=== PATIENT | female | born 1990 | race Caucasian/White ===

== ENCOUNTER 2018-03-05 00:56 | Emergency (ER) | payer OTHER ==
[2018-03-05 00:57] VITALS: BMI 37.3
[2018-03-05 01:16] VITALS: O2SAT 99
--- NOTE | 2018-03-05 03:16 | C.PDOC ---
History Of Present Illness 27 yo female w/PMHx of asthma come in for evaluation of intermittent pain over left breast/chest wall pain for 1month. For last week, pain worsen, more intense. Describes pain as localized over left side of breast/chest, worse with movement. Pt admits, was seen by PMD 2 weeks ago and received Rx: Left breast US and given Naproxyn without improvement in pain. Still pending US. Otherwise, pt denies fever, chills, breast feeding, denies known trauma or injury, skin changes over Left breast, CP, SOB, dyspnea, diaphoresis, palpitation, denies any other active complaints. Ambulate to ED for evaluation, not in nay apparent distress. Time Seen by Provider: 03/05/18 02:30 Chief Complaint (Nursing): Breast Problem History Per: Patient Past Medical History Reviewed: Historical Data, Nursing Documentation, Vital Signs Vital Signs: Last Vital Signs Temp 98.1 F 03/05/18 01:13 Pulse 60 03/05/18 01:13 Resp 14 03/05/18 01:13 BP 133/77 03/05/18 01:13 Pulse Ox 99 03/05/18 01:13 - Medical History PMH: Asthma Surgical History: - [facility] Procedures LOW CERVICAL (02/04/15) Family History: States: Unknown Family Hx - Social History Hx Tobacco Use: No Hx Alcohol Use: No Hx Substance Use: No - Immunization History Hx Tetanus Toxoid Vaccination: No Hx Influenza Vaccination: Yes Hx Pneumococcal Vaccination: No Review Of Systems Except As Marked, All Systems Reviewed And Found Negative. Constitutional: Negative for: Fever, Chills ENT: Negative for: Ear Discharge, Nose Discharge, Throat Pain, Throat Swelling Cardiovascular: Negative for: Chest Pain, Palpitations, Edema, Light Headedness Respiratory: Negative for: Cough, Shortness of Breath, Wheezing Gastrointestinal: Negative for: Nausea, Vomiting, Abdominal Pain, Diarrhea Genitourinary: Negative for: Vaginal Bleeding Musculoskeletal: Negative for: Neck Pain Skin: Negative for: Rash, Lesions Neurological: Negative for: Weakness, Numbness, Headache, Dizziness Physical Exam - Physical Exam Appears: Well, Non-toxic, No Acute Distress Skin: Normal Color, Warm, Dry, No Rash, No Ecchymosis Head: Normacephalic Eye(s): bilateral: PERRL Nose: No Flaring, No Discharge Oral Mucosa: Moist, No Drooling Throat: No Erythema Neck: Trachea Midline, No Midline Cervical Tenderness, Supple Chest: Symmetrical, No Deformity, Tenderness (Left lateral over pectoris muscle. ), No Ecchymosis, No Subcutaneous Emphysema, Other (B/L breast exam- normal, no skin changes, no nipple changes or discharges. No palpable mass.) Cardiovascular: Rhythm Regular, No Murmur Respiratory: No Decreased Breath Sounds, No Accessory Muscle Use, No Stridor, No Wheezing Gastrointestinal/Abdominal: Soft, No Tenderness, No Distention, No Guarding Back: No CVA Tenderness, No Vertebral Tenderness, No Paraspinal Tenderness Extremity: Normal ROM, No Pedal Edema, No Deformity, No Swelling Neurological/Psych: Oriented x3, Normal Speech ED Course And Treatment O2 Sat by Pulse Oximetry: 99 Pulse Ox Interpretation: Normal Progress Note: On re-evaluation, pt is afebrile, hemodynamicaly stable. Non- toxic. Tolerate po well in ED. PulsEOx 99% RA. ENT: no acute findings. Neck: Supple, (-) JVD. Lungs: CTA B/L, BS equal B/L. Left chest wall tenderness over lateral aspect/pectoris muscle. Breast- normal exam, no skin chages, no palpable mass, no nipple changes. CVS: (+)S1S2, reg. Abd: benign. Back: (-) CVA tenderness. Pt has clinical findings c/w Left sided chest wall pain. Pt advised on course of ds. Ref. to F/u with PMD in 2-3 days for re-eval. Disposition Counseled Patient/Family Regarding: Diagnosis, Need For Followup, Rx Given - Disposition Referrals: Kuldeep Head MD [Staff Provider] - Disposition: HOME/ ROUTINE Disposition Time: 02:45 Condition: STABLE Additional Instructions: Light duty to chest wall Take medication as prescribed Follow up with Breast US as prescribed by PMD, and follow up with PMD 2-3 days for re-evaluation. Return to ED if any worsening or new changes. Prescriptions: Methocarbamol [Robaxin] 500 mg PO TID #14 tab Prednisone [Deltasone] 40 mg PO DAILY #6 tablet Instructions: Muscle Strain (DC) - Clinical Impression Clinical Impression: Chest wall pain
[2018-03-05 04:12] VITALS: BP 119/80; PULSE 76; RESP 20; TEMP 98
== END 2018-03-05 04:10 | disposition home or self-care (01) ==
LOC: C.ER 00:56
DX: R07.89 Other chest pain (principal)

== ENCOUNTER 2018-11-03 15:14 | Inpatient (IN) | payer MEDICAID, OTHER ==
[2018-11-03 15:14] VITALS: BMI 37.3
--- NOTE | 2018-11-03 15:50 | C.PDOC ---
History Of Present Illness 28 y/o female with no significant PMH presents to ED c/o dizziness s/p fall 5 days ago. Pt was washing dishes when she had a syncopal episode and fell to the ground, admits to headstrike and brief LOC. Since that time, she has been having intermittent episodes of dizziness [described as "room spinning"] and headache, which she states was improving until today. This morning, patient awoke with severe left sided parietal headache and increased vertigo, worse with walking and head movement. Associated nausea and one episode of vomiting. Also c/o left eye tearing that she states is chronic and has been evaluated by her eye doctor. Pt wears eyeglasses. Denies seizure activity, fever, vision changes, abdominal pain, neck pain, back pain, weakness, numbness, paresthesias, chest pain, palpitations, SOB, or any other associated symptoms. Time Seen by Provider: 11/03/18 15:39 Chief Complaint (Nursing): Headache Past Medical History Vital Signs: Last Vital Signs Temp 98.9 F 11/03/18 15:32 Pulse 98 H 11/03/18 15:32 Resp 20 11/03/18 15:32 BP 115/78 11/03/18 15:32 Pulse Ox 99 11/03/18 15:32 - Medical History PMH: Asthma Surgical History: - [facility] Procedures LOW CERVICAL (02/04/15) Family History: States: Unknown Family Hx - Social History Hx Tobacco Use: No Hx Alcohol Use: No Hx Substance Use: No - Immunization History Hx Tetanus Toxoid Vaccination: No Hx Influenza Vaccination: Yes Hx Pneumococcal Vaccination: No Review Of Systems Except As Marked, All Systems Reviewed And Found Negative. Constitutional: Negative for: Fever, Chills Eyes: Negative for: Pain, Vision Change ENT: Negative for: Nose Discharge, Throat Pain, Throat Swelling Cardiovascular: Negative for: Chest Pain, Palpitations Respiratory: Negative for: Cough, Shortness of Breath Gastrointestinal: Negative for: Nausea, Vomiting, Abdominal Pain, Constipation Genitourinary: Negative for: Dysuria, Frequency, Vaginal Discharge, Vaginal Bleeding Musculoskeletal: Negative for: Neck Pain, Shoulder Pain, Back Pain Skin: Negative for: Rash Neurological: Positive for: Headache, Dizziness, Other (Vertigo). Negative for: Weakness, Numbness, Seizures Physical Exam - Physical Exam Appears: Well, Non-toxic, No Acute Distress Skin: Normal Color, Warm, Dry Eye(s): bilateral: Normal Inspection, PERRL, EOMI, Photophobia, Other (horizontal nystagmus) Ear(s): Bilateral: Normal Nose: Normal Throat: Normal Neck: Normal, Normal ROM Lymphatic: Normal Exam Cardiovascular: Rhythm Regular Respiratory: Normal Breath Sounds Gastrointestinal/Abdominal: Normal Exam, Bowel Sounds (normoactive), Soft, No Tenderness Back: Normal Inspection, No CVA Tenderness Extremity: Normal ROM, No Tenderness, No Calf Tenderness, Capillary Refill (<2s), No Deformity Extremity: Bilateral: Atraumatic, No Pedal Edema, Normal Color And Temperature, Normal ROM Pulses: Left Radial: Normal, Right Radial: Normal Neurological/Psych: Oriented x3, Normal Speech, Normal Cognition, Normal Cranial Nerves, No Cerebellar Signs (slow, but no ataxia), Normal Motor, Normal Sensation Gait: Unsteady ED Course And Treatment - Laboratory Results Result Diagrams: 11/03/18 18:39 11/03/18 18:39 Lab Interpretation: Normal Urine POC: Negative ECG: Viewed By Wi ECG Rhythm: Sinus Rhythm, Sinus Bradycardia ECG Interpretation: No Acute Changes Interpretation Of ECG: rate 59; sinus shimon; sinus aarythmia; normal intervals; no STEMI or other signs of ischemia Rate From EC O2 Sat by Pulse Oximetry: 99 (RA) Pulse Ox Interpretation: Normal - Radiology CXR: Interpreted by Wi, Viewed By Wi CXR Interpretation: Yes: No Acute Disease - CT Scan/US CT-Head Other Rad Studies (CT/US): Read By Radiologist, Radiology Report Reviewed CT/US Interpretation: Date of service: 11/03/2018. PROCEDURE: CT HEAD WITHOUT CONTRAST. HISTORY: trauma, headache. COMPARISON: None available. TECHNIQUE: Axial computed tomography images were obtained through the head/brain without intravenous contrast. Radiation dose: Total exam DLP = 1083.89 mGy-cm. This CT exam was performed using one or more of the following dose reduction techniques: Automated exposure control, adjustment of the mA and/or kV according to patient size, and/or use of iterative reconstruction technique. FINDINGS: HEMORRHAGE: No intracranial hemorrhage. BRAIN: No mass effect or edema. No atrophy or chronic microvascular ischemic changes. VENTRICLES: Unremarkable. No hydrocephalus. CALVARIUM: Unremarkable. PARANASAL SINUSES: Unremarkable as visualized. No significant inflammatory changes. MASTOID AIR CELLS: Unremarkable as visualized. No inflammatory changes. OTHER FINDINGS: None. IMPRESSION: No intracranial hemorrhage or mass effect. Please note the same- day CT maxillofacial study. CT-MaxillioFacial Other Rad Studies (CT/US): Read By Radiologist, Radiology Report Reviewed CT/US Interpretation: Date of service: 11/03/2018. PROCEDURE: CT MAXILLOFACIAL BONES WITHOUT CONTRAST. HISTORY: trauma, facial pain. COMPARISON: None available. TECHNIQUE: Contiguous axial CT images of the maxillofacial bones were obtained. Coronal and sagittal reformats were generated. Radiation dose: Total exam DLP = 759.48 mGy-cm. This CT exam was performed using one or more of the following dose reduction techniques: Automated exposure control, adjustment of the mA and/or kV according to patient size, and/or use of iterative reconstruction technique. FINDINGS: NASAL BONES: No fracture. Nasal septal deviation noted. ORBITS: Unremarkable. PARANASAL SINUSES/ MASTOIDS: Clear. MAXILLA: Unremarkable. MANDIBLE/ TEMPOROMANDIBULAR JOINTS: Unremarkable. SKULL BASE: Unremarkable. TEMPORAL BONES: Middle ears and mastoid grossly unremarkable. OTHER FINDINGS: None. IMPRESSION: Unremark able non contrast enhanced CT of the maxillofacial bones. CT-Cervical Spine Other Rad Studies (CT/US): Read By Radiologist, Radiology Report Reviewed CT/US Interpretation: Date of service: 11/03/2018. PROCEDURE: CT Cervical Spine without contrast. HISTORY: trauma. COMPARISON: None available. TECHNIQUE: Axial computed tomography images were obtained of the cervical spine without the use of intravenous contrast. Coronal and sagittal reformatted images were created and reviewed. Radiation dose: Total exam DLP = 505.86 mGy-cm. This CT exam was performed using one or more of the following dose reduction techniques: Automated exposure control, adjustment of the mA and/or kV according to patient size, and/or use of iterative reconstruction technique. FINDINGS: VERTEBRAE: No fracture. Normal alignment. No destructive bony lesion. DISCS/SPINAL CANAL/NEURAL FORAMINA: No significant central canal or neural foraminal stenosis. Discs heights are grossly preserved. PARASPINAL SOFT TISSUES: Unremarkable. OTHER FINDINGS: None. IMPRESSION: Unremarkable CT of the cervical spine. Medical Decision Making Medical Decision Making: Initial Plan: * POC preg * CT Head * CT Cervical Spine * CT Maxillofacial * Zofran * Meclizine * Tylenol On initial exam, patient appears uncomfortable, holding left side of head, sensitive to light. No focal neurological findings on exam. Visual garza intact, PERRLA, EOMI. Slow but not ataxic finger to nose. Able to ambulate wit hout assistance although slowly, not ataxic. 17:52 reports resolution of headache after tylenol Visual acuity 20/40 bilaterally uncorrected, patient wears eyeglasses, states her prescription is outdated Pt ambulating with steady gait to and from bathroom without assistance 18:22 reports resolution of nausea, no episodes of vomiting in the ED. continues with vertigo patient now stating she fainted on wednesday and did not slip, as was originally stated - non-mechanical fall Revised plan: * CBC, CMP * UA * CXR * EKG * IVF 20:[address] Cason who accepts patient for inpatient telemetry observation with diagnosis of vertigo and syncope. Requests cardiology and neurology consults. Disposition - Disposition Disposition: HOSPITALIZED Disposition Time: 20:15 Condition: GOOD - Clinical Impression Clinical Impression: Headache, Vertigo, Syncope
--- NOTE | 2018-11-03 16:25 | CT ---
Date of service: 11/03/2018 PROCEDURE: CT HEAD WITHOUT CONTRAST. HISTORY: trauma, headache COMPARISON: None available. TECHNIQUE: Axial computed tomography images were obtained through the head/brain without intravenous contrast. Radiation dose: Total exam DLP = 1083.89 mGy-cm. This CT exam was performed using one or more of the following dose reduction techniques: Automated exposure control, adjustment of the mA and/or kV according to patient size, and/or use of iterative reconstruction technique. FINDINGS: HEMORRHAGE: No intracranial hemorrhage. BRAIN: No mass effect or edema. No atrophy or chronic microvascular ischemic changes. VENTRICLES: Unremarkable. No hydrocephalus. CALVARIUM: Unremarkable. PARANASAL SINUSES: Unremarkable as visualized. No significant inflammatory changes. MASTOID AIR CELLS: Unremarkable as visualized. No inflammatory changes. OTHER FINDINGS: None. IMPRESSION: No intracranial hemorrhage or mass effect. Please note the same-day CT maxillofacial study.
--- NOTE | 2018-11-03 16:26 | CT ---
Date of service: 11/03/2018 PROCEDURE: CT MAXILLOFACIAL BONES WITHOUT CONTRAST HISTORY: trauma, facial pain COMPARISON: None available. TECHNIQUE: Contiguous axial CT images of the maxillofacial bones were obtained. Coronal and sagittal reformats were generated. Radiation dose: Total exam DLP = 759.48 mGy-cm. This CT exam was performed using one or more of the following dose reduction techniques: Automated exposure control, adjustment of the mA and/or kV according to patient size, and/or use of iterative reconstruction technique. FINDINGS: NASAL BONES: No fracture. Nasal septal deviation noted ORBITS: Unremarkable. PARANASAL SINUSES/ MASTOIDS: Clear. MAXILLA: Unremarkable. MANDIBLE/ TEMPOROMANDIBULAR JOINTS: Unremarkable. SKULL BASE: Unremarkable. TEMPORAL BONES: Middle ears and mastoid grossly unremarkable. OTHER FINDINGS: None. IMPRESSION: Unremarkable non contrast enhanced CT of the maxillofacial bones.
--- NOTE | 2018-11-03 16:27 | CT ---
Date of service: 11/03/2018 PROCEDURE: CT Cervical Spine without contrast HISTORY: trauma COMPARISON: None available. TECHNIQUE: Axial computed tomography images were obtained of the cervical spine without the use of intravenous contrast. Coronal and sagittal reformatted images were created and reviewed. Radiation dose: Total exam DLP = 505.86 mGy-cm. This CT exam was performed using one or more of the following dose reduction techniques: Automated exposure control, adjustment of the mA and/or kV according to patient size, and/or use of iterative reconstruction technique. FINDINGS: VERTEBRAE: No fracture. Normal alignment. No destructive bony lesion. DISCS/SPINAL CANAL/NEURAL FORAMINA: No significant central canal or neural foraminal stenosis. Discs heights are grossly preserved. PARASPINAL SOFT TISSUES: Unremarkable. OTHER FINDINGS: None. IMPRESSION: Unremarkable CT of the cervical spine.
[2018-11-03 18:42] LABS: BASO % 0.4 % (0.0-2.0); EOS # 0.1 K/uL (0.0-0.7); EOS % 1.4 % (0.0-4.0); HEMOGLOBIN 13.2 g/dL (11.0-16.0); LYMPH # 2.6 K/uL (1.0-4.3); LYMPH % 26.7 % (20.0-40.0); MEAN CORPUSCULAR HEMOGLOBIN 27.7 pg (27.0-31.0); MEAN CORPUSCULAR HGB CONC 33.1 g/dL (33.0-37.0); MEAN PLATELET VOLUME 10.8 fL (7.2-11.7); MONO # 0.5 K/uL (0.0-0.8); MONO % 5.1 % (0.0-10.0); NEUT # 6.5 K/uL (1.8-7.0); NEUT % 66.4 % (50.0-75.0); RBC 4.78 Mil/uL (3.80-5.20); RED CELL DISTRIBUTION WIDTH 13.3 % (11.5-14.5); WHITE BLOOD COUNT 9.8 K/uL (4.8-10.8)
[2018-11-03 18:56] LABS: MEAN CELL VOLUME 83.6 fL (81.0-99.0)
[2018-11-03 18:59] LABS: ALB/GLOB RATIO 1.6 (1.0-2.1); ALBUMIN 4.3 g/dL (3.5-5.0); ALT/SGPT 17 U/L (9-52); AST/SGOT 20 U/L (14-36); BLOOD UREA NITROGEN 12 mg/dL (7-17); CALCIUM 9.7 mg/dl (8.6-10.4); GFR NON-AFRICAN AMERICAN > 60
[2018-11-03 19:18] LABS: SQUAMOUS EPITHIAL 1 /hpf (0-5); URINE BACTERIA RARE (<OCC); URINE BILIRUBIN NEGATIVE (NEGATIVE); URINE BLOOD 1+ (NEGATIVE); URINE CLARITY Clear (Clear); URINE COLOR Yellow (YELLOW); URINE GLUCOSE (UA) NORMAL (Normal); URINE LEUKOCYTE ESTERASE NEG Leu/uL (Negative); URINE PROTEIN NEGATIVE (NEGATIVE); URINE UROBILINOGEN NORMAL mg/dL (0.2-1.0)
[2018-11-03] MEDS ORDERED: Sodium Chloride 0.9% 1,000 ML IV ONE (19:44)
[2018-11-04 06:46] LABS: BASO % 0.3 % (0.0-2.0); EOS # 0.3 K/uL (0.0-0.7); EOS % 3.3 % (0.0-4.0); HEMOGLOBIN 11.8 g/dL (11.0-16.0); LYMPH # 2.9 K/uL (1.0-4.3); LYMPH % 38.8 % (20.0-40.0); MEAN CORPUSCULAR HEMOGLOBIN 28.4 pg (27.0-31.0); MEAN CORPUSCULAR HGB CONC 33.8 g/dL (33.0-37.0); MEAN PLATELET VOLUME 11.1 fL (7.2-11.7); MONO # 0.6 K/uL (0.0-0.8); MONO % 7.5 % (0.0-10.0); NEUT # 3.8 K/uL (1.8-7.0); NEUT % 50.1 % (50.0-75.0); NRBC % 0.1 % (0.0-2.0); RBC 4.17 Mil/uL (3.80-5.20); RED CELL DISTRIBUTION WIDTH 13.4 % (11.5-14.5); WHITE BLOOD COUNT 7.5 K/uL (4.8-10.8)
[2018-11-04 07:04] LABS: ALB/GLOB RATIO 1.3 (1.0-2.1); ALBUMIN 3.2 g/dL (3.5-5.0); ALT/SGPT 21 U/L (9-52); AST/SGOT 16 U/L (14-36); BLOOD UREA NITROGEN 8 mg/dL (7-17); CALCIUM 8.6 mg/dl (8.6-10.4); GFR NON-AFRICAN AMERICAN > 60; HDL CHOLESTEROL 44 mg/dL (30-70)
[2018-11-04 07:14] LABS: LDL CHOLESTEROL 78 mg/dL (0-129)
[2018-11-04 07:37] LABS: BARBITURATES, UR NEGATIVE (NEGATIVE); BENZODIAZEPINES, UR NEGATIVE (NEGATIVE); OPIATES, UR NEGATIVE (NEGATIVE); PHENCYCLIDINE, UR NEGATIVE (NEGATIVE)
--- NOTE | 2018-11-04 08:47 | RAD ---
Date of service: 11/03/2018 HISTORY: dizziness COMPARISON: 10/20/2016. FINDINGS: LUNGS: The lungs are well inflated and clear. PLEURA: No pleural effusions or pneumothorax. CARDIOVASCULAR: The heart is normal in size. No aortic atherosclerotic calcification present. OSSEOUS STRUCTURES: Within normal limits for the patient's age. VISUALIZED UPPER ABDOMEN: Normal. OTHER FINDINGS: None. IMPRESSION: No active pulmonary disease.
[2018-11-04] MEDS: Enoxaparin 40 mg Syringe SC SCH (09:13)
--- NOTE | 2018-11-04 09:18 | CP.PCM.PN ---
Subjective - Date & Time of Evaluation Date of Evaluation: 11/04/18 Time of Evaluation: 09:17 - Subjective Subjective: H&P dictated #[id number] Objective - Vital Signs/Intake and Output Vital Signs (last 24 hours): Temp Pulse Resp BP Pulse Ox 98.4 F 54 L 20 115/66 95 11/04/18 07:43 11/04/18 08:06 11/04/18 07:43 11/04/18 07:43 11/04/18 07:43 Intake and Output: 11/04/18 11/04/18 06:59 18:59 Intake Total 600 Balance 600 - Medications Medications: Current Medications Enoxaparin Sodium (Lovenox) 40 mg SC DAILY [facility] Last Admin: 11/04/18 09:13 Dose: 40 mg Dextrose/Sodium Chloride (Dextrose 5%/0.9% Ns 1000 Ml) 1,000 mls @ 100 mls/hr IV .Q10H [facility] Last Admin: 11/04/18 00:00 Dose: 100 mls/hr Potassium Chloride (K-Dur 20 Meq Er Tab) 40 meq PO ONCE ONE Stop: 11/04/18 10:01 Last Admin: 11/04/18 09:13 Dose: 40 meq - Labs Labs: 11/04/18 06:40 11/04/18 06:40
[2018-11-04] MEDS ORDERED: Potassium Chloride 20 mEq ER Tab PO ONE (10:00)
--- NOTE | 2018-11-04 11:10 | CP.PCM.CON ---
History of Present Illness - History of Present Illness History of Present Illness: The pt is a 28 year old woman, previously healthy. She takes only control. On wednesday, doing dishes, he abruptly passed out, woke up on the floor with her 8 year old child over her shaking her face. She sat on the couch. She began experiencing left occipital pain that has been persistent. She has had vertigo at rest since the incident, and has not been able to function, spend the res of the week in bed. Pt has vertigo tdoay, during my interview, made worse with looking up. Standing up, she feels light headed, that she might faint. No diabetes, drugs, etoh or cigs, no fh of early cad related . Review of Systems - Review of Systems All systems: reviewed and no additional remarkable complaints except (as above) Past Patient History - Past Social History Smoking Status: Never Smoked - CARDIAC Hx Cardiac Disorders: Yes - PULMONARY Hx Asthma: Yes - PSYCHIATRIC Hx Substance Use: No - SURGICAL HISTORY Hx Surgeries: Yes Hx Section: Yes (2x) - ANESTHESIA Hx Anesthesia: No Hx Anesthesia Reactions: No Meds Allergies/Adverse Reactions: Allergies Allergy/AdvReac Type Severity Reaction Status Date / Time No Known Allergies Allergy Verified 11/03/18 15:35 - Medications Medications: Current Medications Enoxaparin Sodium (Lovenox) 40 mg SC DAILY [facility] Last Admin: 11/04/18 09:13 Dose: 40 mg Dextrose/Sodium Chloride (Dextrose 5%/0.9% Ns 1000 Ml) 1,000 mls @ 100 mls/hr IV .Q10H [facility] Last Admin: 11/04/18 00:00 Dose: 100 mls/hr Physical Exam - Constitutional Appears: Well - Head Exam Head Exam: NORMAL INSPECTION - Eye Exam Eye Exam: EOMI - ENT Exam ENT Exam: Mucous Membranes Moist, Normal Exam - Neck Exam Neck exam: Positive for: Normal Inspection - Respiratory Exam Respiratory Exam: Clear to Auscultation Bilateral - Cardiovascular Exam Cardiovascular Exam: REGULAR RHYTHM - GI/Abdominal Exam GI & Abdominal Exam: Normal Bowel Sounds - Exam External exam: NORMAL EXTERNAL EXAM - Extremities Exam Extremities exam: Positive for: normal inspection - Back Exam Back exam: NORMAL INSPECTION - Neurological Exam Neurological exam: Alert, CN II-XII Intact, Oriented x3 - Psychiatric Exam Psychiatric exam: Normal Affect, Normal Mood - Skin Skin Exam: Normal Color Results - Vital Signs Recent Vital Signs: Last Vital Signs Temp 98.4 F 11/04/18 07:43 Pulse 54 L 11/04/18 08:06 Resp 20 11/04/18 07:43 BP 115/66 11/04/18 07:43 Pulse Ox 95 11/04/18 07:43 - Labs Result Diagrams: 11/04/18 06:40 11/04/18 06:40 Labs: Laboratory Results - last 24 hr 11/03/18 11/03/18 11/03/18 07:09 18:39 18:39 WBC 9.8 RBC 4.78 Hgb 13.2 Hct 40.0 MCV 83.6 D MCH 27.7 MCHC 33.1 RDW 13.3 Plt Count 244 MPV 10.8 Neut % (Auto) 66.4 Lymph % (Auto) 26.7 Holmes % (Auto) 5.1 Eos % (Auto) 1.4 Baso % (Auto) 0.4 Neut # (Auto) 6.5 Lymph # (Auto) 2.6 Holmes # (Auto) 0.5 Eos # (Auto) 0.1 Baso # (Auto) 0.0 Sodium 137 Potassium 3.7 Chloride 105 Carbon Dioxide 23 Anion Gap 13 BUN 12 Creatinine 0.5 L Est GFR ( Amer) > 60 Est GFR (Non-Af Amer) > 60 Random Glucose 155 H D Hemoglobin A1c Calcium 9.7 Phosphorus Magnesium Total Bilirubin 0.4 AST 20 ALT 17 Alkaline Phosphatase 66 Troponin I Total Protein 7.0 Albumin 4.3 Globulin 2.7 Albumin/Globulin Ratio 1.6 Triglycerides Cholesterol LDL Cholesterol Direct HDL Cholesterol TSH 3rd Generation Urine Color Urine Clarity Urine pH Ur Specific [place] Urine Protein Urine Glucose (UA) Urine Ketones Urine Blood Urine Nitrate Urine Bilirubin Urine Urobilinogen Ur Leukocyte Esterase Urine WBC (Auto) Urine RBC (Auto) Ur Squamous Epith Cells Urine Bacteria Urine Opiates Screen Negative Urine Methadone Screen Negative Ur Barbiturates Screen Negative Ur Phencyclidine Scrn Negative Ur Amphetamines Screen Negative U Benzodiazepines Scrn Negative U Oth Cocaine Metabols Negative U Cannabinoids Screen Negative 11/03/18 11/04/18 11/04/18 19:12 06:40 06:40 WBC 7.5 RBC 4.17 Hgb 11.8 Hct 35.0 MCV 84.0 MCH 28.4 MCHC 33.8 RDW 13.4 Plt Count 188 MPV 11.1 Neut % (Auto) 50.1 Lymph % (Auto) 38.8 Holmes % (Auto) 7.5 Eos % (Auto) 3.3 Baso % (Auto) 0.3 Neut # (Auto) 3.8 Lymph # (Auto) 2.9 Holmes # (Auto) 0.6 Eos # (Auto) 0.3 Baso # (Auto) 0.0 Sodium 137 Potassium 3.5 L Chloride 108 H Carbon Dioxide 23 Anion Gap 9 L BUN 8 Creatinine 0.5 L Est GFR ( Amer) > 60 Est GFR (Non-Af Amer) > 60 Random Glucose 102 D Hemoglobin A1c Calcium 8.6 Phosphorus 4.1 Magnesium 1.7 Total Bilirubin 0.3 AST 16 ALT 21 Alkaline Phosphatase 53 Troponin I < 0.0120 Total Protein 5.7 L Albumin 3.2 L D Globulin 2.6 Albumin/Globulin Ratio 1.3 Triglycerides 138 Cholesterol 129 LDL Cholesterol Direct 78 HDL Cholesterol 44 TSH 3rd Generation 4.33 Urine Color Yellow Urine Clarity Clear Urine pH 5.0 Ur Specific [place] 1.019 Urine Protein Negative Urine Glucose (UA) Normal Urine Ketones Negative Urine Blood 1+ H Urine Nitrate Negative Urine Bilirubin Negative Urine Urobilinogen Normal Ur Leukocyte Esterase Neg Urine WBC (Auto) 1 Urine RBC (Auto) 2 Ur Squamous Epith Cells 1 Urine Bacteria Rare Urine Opiates Screen Urine Methadone Screen Ur Barbiturates Screen Ur Phencyclidine Scrn Ur Amphetamines Screen U Benzodiazepines Scrn U Oth Cocaine Metabols U Cannabinoids Screen 11/04/18 06:40 WBC RBC Hgb Hct MCV MCH MCHC RDW Plt Count MPV Neut % (Auto) Lymph % (Auto) Holmes % (Auto) Eos % (Auto) Baso % (Auto) Neut # (Auto) Lymph # (Auto) Holmes # (Auto) Eos # (Auto) Baso # (Auto) Sodium Potassium Chloride Carbon Dioxide Anion Gap BUN Creatinine Est GFR ( Amer) Est GFR (Non-Af Amer) Random Glucose Hemoglobin A1c 5.6 Calcium Phosphorus Magnesium Total Bilirubin AST ALT Alkaline Phosphatase Troponin I Total Protein Albumin Globulin Albumin/Globulin Ratio Triglycerides Cholesterol LDL Cholesterol Direct HDL Cholesterol TSH 3rd Generation Urine Color Urine Clarity Urine pH Ur Specific [place] Urine Protein Urine Glucose (UA) Urine Ketones Urine Blood Urine Nitrate Urine Bilirubin Urine Urobilinogen Ur Leukocyte Esterase Urine WBC (Auto) Urine RBC (Auto) Ur Squamous Epith Cells Urine Bacteria Urine Opiates Screen Urine Methadone Screen Ur Barbiturates Screen Ur Phencyclidine Scrn Ur Amphetamines Screen U Benzodiazepines Scrn U Oth Cocaine Metabols U Cannabinoids Screen - EKG Data EKG Interpreted by: Myself EKG shows normal: Sinus rhythm (normal) Assessment & Plan - Assessment and Plan (Free Text) Assessment: 1. Syncoep: will check ortostatics, ecg is normal, tni neg. Syncoep can occur with pulmonary embolism, and pt is on control: d dimer,and if pos, then ct is advised. Will review echo. No arrhythmia seen on tele. 2. Pt clearly has vertigo at rest, and persistent. It is worse looking up. A neurology consult is advised.
[2018-11-04] MEDS: Dextrose 5%/0.9% NS 1,000 ML IV SCH ×3 (11:14→17:45)
--- NOTE | 2018-11-04 15:00 | VASCLAB ---
Date of service: 11/04/2018 PROCEDURE: Carotid Duplex Exam. HISTORY: syncope COMPARISON: None available. TECHNIQUE: Grayscale and duplex Doppler evaluation of the cervical carotid and vertebral arteries were performed. The common carotid, carotid bifurcations and cervical Internal Carotid Artery (ICA) and proximal External Carotid Artery (ECA) were evaluated. The vertebral arteries were evaluated for gross patency and flow direction. Report prepared by Charbel Knig, BS, RVT FINDINGS: RIGHT CAROTID ARTERIES: 1. Common Carotid Artery: No significant focal plaque formation of the right common carotid artery. Maximum Peak Systolic velocity: 112 cm/sec: End-diastolic velocity 32 cm/sec. 2. Carotid Bifurcation: plaque formation. Maximum Peak Systolic velocity: 89 cm/sec: End-diastolic velocity 26 cm/sec. 3. Internal Carotid Artery: Plaque description: 3.1. Proximal Segment: Peak systolic velocity 112 cm/sec: End-diastolic velocity 31 cm/sec - % stenosis 0-15% 3.2. Middle Segment: Peak systolic velocity 81 cm/sec: End-diastolic velocity 33 cm/sec - % stenosis 0-15% 3.3. Distal Segment: Peak systolic velocity 81 cm/sec: End-diastolic velocity 28 cm/sec - % stenosis 0-15% 4. External Carotid Artery: No significant focal plaque formation. Peak systolic velocity 105 cm/sec 5. ICA/CCA Ratio: 1.0 LEFT CAROTID ARTERIES: 1. Common Carotid Artery: No significant focal plaque formation of the left common carotid artery. Maximum Peak Systolic velocity: 119 cm/sec: End-diastolic velocity 30 cm/sec. 2. Carotid Bifurcation: plaque formation. Maximum Peak Systolic velocity: 109 cm/sec: End-diastolic velocity 28 cm/sec. 3. Internal Carotid Artery: Plaque description: 3.1. Proximal Segment: Peak systolic velocity 112 cm/sec: End-diastolic velocity 33 cm/sec - % stenosis 0-15% 3.2. Middle Segment: Peak systolic velocity 83 cm/sec: End-diastolic velocity 26 cm/sec - % stenosis 0-15% 3.3. Distal Segment: Peak systolic velocity 80 cm/sec: End-diastolic velocity 33 cm/sec - % stenosis 0-15% 4. External Carotid Artery: No significant focal plaque formation. Peak systolic velocity 91 cm/sec 5. ICA/CCA Ratio: 0.9 VERTEBRAL ARTERIES: 1. Right Vertebral Artery: The right vertebral artery flow direction is antegrade. 2. Left Vertebral Artery: The left vertebral artery flow direction is antegrade. OTHER FINDINGS: 1. Right Brachial Blood pressure: 124 mmHg. 2. Left Brachial Blood pressure: 120 mmHg. 3. No atherosclerotic calcification present IMPRESSION: RIGHT: Duplex scan does not suggest hemodynamically significant stenosis of the right extracranial carotid arteries. LEFT: Duplex scan does not suggest hemodynamically significant stenosis of the left extracranial carotid arteries.
[2018-11-04 16:56] LABS: SQUAMOUS EPITHIAL 3 /hpf (0-5); URINE BACTERIA RARE (<OCC); URINE BILIRUBIN NEGATIVE (NEGATIVE); URINE BLOOD NEGATIVE (NEGATIVE); URINE CLARITY Clear (Clear); URINE COLOR Yellow (YELLOW); URINE GLUCOSE (UA) NORMAL (Normal); URINE LEUKOCYTE ESTERASE NEG Leu/uL (Negative); URINE PROTEIN NEGATIVE (NEGATIVE); URINE UROBILINOGEN NORMAL mg/dL (0.2-1.0)
[2018-11-04] MEDS ORDERED: Iodixanol 320 MG/ML 100 ML BOTTLE IV ONE (17:52)
--- NOTE | 2018-11-04 23:37 | PCM.RRT ---
DIVISIONAL MERCHANDISING MANAGER Nurses Assessment New IV Insertion Tolerance: Excellent - Head Head Exam: ATRAUMATIC, NORMAL INSPECTION - Eyes Eye Exam: EOMI - Respiratory Exam Respiratory Exam: Clear to Ausculation Bilateral, NORMAL BREATHING PATTERN. absent: Rhonchi, Wheezes - Cardiovascular Exam Cardiovascular Exam: REGULAR RHYTHM, +S1, +S2 - GI/Abdominal Exam GI & Abdominal Exam: Soft, Normal Bowel Sounds - Neurological Exam Neurological Exam: Alert, Awake - Extremities Exam Extremities Exam: absent: Pedal Edema Plan - Assessment of Findings&Treatment Plan DIVISIONAL MERCHANDISING MANAGER called at ... for patient feeling faint. Patient was with CP in room who wa s assisting patient to bathroom when patient stated she started to feel faint. She did not pass out or lose conciousness. Patient brought back to bed and fell down into bed but did not hit her head. Head CT yesterday 11/03 was unremarkable. Patient did receive one dose of antivert for dizziness earlier today. Primary Dr. Cason was notified for further management. Patient appearing stable at this time and initial vitals unremarkable, though on repeat vitals she is tachycardic. Patient complaining also of headache, which she states was chief complaint upon arriving to hospital. No further interventions at this time. Initial Vital Signs: 128/84 pulse 88 100% 02 SAT RA temp 98 Vitals at end DIVISIONAL MERCHANDISING MANAGER 138/100 pulse 125 99% 02 on RA
--- NOTE | 2018-11-04 23:55 | CP.PCM.CON ---
<Jama Knight - Last Filed: 11/05/18 09:07> History of Present Illness - History of Present Illness History of Present Illness: Patient is a 28 female with a past medical history significant for DM presenting with complaints of syncopal episode 5 days prior to being admitted. As per patient she was washing the dishes then suddenly she woke up from the floor. Patient states that she hit her head when this had happened and subsequently developed a headache which she has had since the fall. Patient states when she is looking downward she does not experience dizziness however when looking upward she xperiences vertigo. Patient also states if she sits down she feels fine however symptoms are exacerbated with standing and walking. Patient's story is incosistent as she changes the story from time to time. Patient denies any prior syncopal episodes. Review of Systems - Constitutional Constitutional: absent: Chills - EENT Eyes: absent: Change in Vision, Diplopia Ears: Dizziness - Cardiovascular Cardiovascular: absent: Chest Pain, Dyspnea - Respiratory Respiratory: absent: Cough, Dyspnea - Gastrointestinal Gastrointestinal: absent: Abdominal Pain - Genitourinary Genitourinary: absent: Dysuria - Musculoskeletal Musculoskeletal: absent: Back Pain - Neurological Neurological: Disequilibrium, Dizziness, Headaches, Vertigo Past Patient History - Past Social History Smoking Status: Never Smoked - CARDIAC Hx Cardiac Disorders: Yes - PULMONARY Hx Asthma: Yes - PSYCHIATRIC Hx Substance Use: No - SURGICAL HISTORY Hx Surgeries: Yes Hx Section: Yes (2x) - ANESTHESIA Hx Anesthesia: No Hx Anesthesia Reactions: No Meds Allergies/Adverse Reactions: Allergies Allergy/AdvReac Type Severity Reaction Status Date / Time No Known Allergies Allergy Verified 11/03/18 15:35 - Medications Medications: Current Medications Enoxaparin Sodium (Lovenox) 40 mg SC DAILY [facility] Last Admin: 11/04/18 09:13 Dose: 40 mg Dextrose/Sodium Chloride (Dextrose 5%/0.9% Ns 1000 Ml) 1,000 mls @ 100 mls/hr IV .Q10H [facility] Last Admin: 11/04/18 11:14 Dose: 100 mls/hr Influenza Virus Vaccine (Flucelvax Quad 0924-1764 Syr) 60 mcg IM .ONCE ONE Stop: 11/05/18 12:01 Physical Exam - Head Exam Head Exam: NORMOCEPHALIC - Eye Exam Eye Exam: EOMI - Respiratory Exam Respiratory Exam: Clear to Auscultation Bilateral, NORMAL BREATHING PATTERN - Cardiovascular Exam Cardiovascular Exam: REGULAR RHYTHM, +S1, +S2 - GI/Abdominal Exam GI & Abdominal Exam: Normal Bowel Sounds - Extremities Exam Extremities exam: Positive for: normal inspection - Neurological Exam Neurological exam: Alert, CN II-XII Intact, Oriented x3 Additional comments: Patient non compliant with parts of neurological exam however exam was completely normal Results - Vital Signs Recent Vital Signs: Last Vital Signs Temp 98.7 F 11/04/18 16:13 Pulse 84 11/04/18 16:13 Resp 18 11/04/18 16:13 BP 120/79 11/04/18 16:13 Pulse Ox 99 11/04/18 16:13 - Labs Result Diagrams: 11/05/18 07:11 11/05/18 07:11 Labs: Laboratory Results - last 24 hr 11/03/18 11/04/18 11/04/18 07:09 06:40 06:40 WBC 7.5 RBC 4.17 Hgb 11.8 Hct 35.0 MCV 84.0 MCH 28.4 MCHC 33.8 RDW 13.4 Plt Count 188 MPV 11.1 Neut % (Auto) 50.1 Lymph % (Auto) 38.8 Larue % (Auto) 7.5 Eos % (Auto) 3.3 Baso % (Auto) 0.3 Neut # (Auto) 3.8 Lymph # (Auto) 2.9 Larue # (Auto) 0.6 Eos # (Auto) 0.3 Baso # (Auto) 0.0 D-Dimer, Quantitative Sodium 137 Potassium 3.5 L Chloride 108 H Carbon Dioxide 23 Anion Gap 9 L BUN 8 Creatinine 0.5 L Est GFR ( Amer) > 60 Est GFR (Non-Af Amer) > 60 POC Glucose (mg/dL) Random Glucose 102 D Hemoglobin A1c Calcium 8.6 Phosphorus 4.1 Magnesium 1.7 Total Bilirubin 0.3 AST 16 ALT 21 Alkaline Phosphatase 53 Troponin I < 0.0120 Total Protein 5.7 L Albumin 3.2 L D Globulin 2.6 Albumin/Globulin Ratio 1.3 Triglycerides 138 Cholesterol 129 LDL Cholesterol Direct 78 HDL Cholesterol 44 TSH 3rd Generation 4.33 Urine Color Urine Clarity Urine pH Ur Specific [place] Urine Protein Urine Glucose (UA) Urine Ketones Urine Blood Urine Nitrate Urine Bilirubin Urine Urobilinogen Ur Leukocyte Esterase Urine WBC (Auto) Urine RBC (Auto) Ur Squamous Epith Cells Urine Bacteria Urine HCG, Qual Urine Opiates Screen Negative Urine Methadone Screen Negative Ur Barbiturates Screen Negative Ur Phencyclidine Scrn Negative Ur Amphetamines Screen Negative U Benzodiazepines Scrn Negative U Oth Cocaine Metabols Negative U Cannabinoids Screen Negative 11/04/18 11/04/18 11/04/18 06:40 13:15 13:15 WBC RBC Hgb Hct MCV MCH MCHC RDW Plt Count MPV Neut % (Auto) Lymph % (Auto) Larue % (Auto) Eos % (Auto) Baso % (Auto) Neut # (Auto) Lymph # (Auto) Larue # (Auto) Eos # (Auto) Baso # (Auto) D-Dimer, Quantitative Sodium Potassium Chloride Carbon Dioxide Anion Gap BUN Creatinine Est GFR ( Amer) Est GFR (Non-Af Amer) POC Glucose (mg/dL) Random Glucose Hemoglobin A1c 5.6 Calcium Phosphorus Magnesium Total Bilirubin AST ALT Alkaline Phosphatase Troponin I Total Protein Albumin Globulin Albumin/Globulin Ratio Triglycerides Cholesterol LDL Cholesterol Direct HDL Cholesterol TSH 3rd Generation Urine Color Yellow Urine Clarity Clear Urine pH 6.0 Ur Specific [place] 1.005 Urine Protein Negative Urine Glucose (UA) Normal Urine Ketones Negative Urine Blood Negative Urine Nitrate Negative Urine Bilirubin Negative Urine Urobilinogen Normal Ur Leukocyte Esterase Neg Urine WBC (Auto) < 1 Urine RBC (Auto) 1 Ur Squamous Epith Cells 3 Urine Bacteria Rare Urine HCG, Qual Negative Urine Opiates Screen Urine Methadone Screen Ur Barbiturates Screen Ur Phencyclidine Scrn Ur Amphetamines Screen U Benzodiazepines Scrn U Oth Cocaine Metabols U Cannabinoids Screen 11/04/18 11/04/18 11/04/18 13:38 13:38 23:27 WBC RBC Hgb Hct MCV MCH MCHC RDW Plt Count MPV Neut % (Auto) Lymph % (Auto) Larue % (Auto) Eos % (Auto) Baso % (Auto) Neut # (Auto) Lymph # (Auto) Larue # (Auto) Eos # (Auto) Baso # (Auto) D-Dimer, Quantitative 344 H Sodium Potassium Chloride Carbon Dioxide Anion Gap BUN Creatinine Est GFR ( Amer) Est GFR (Non-Af Amer) POC Glucose (mg/dL) 95 Random Glucose Hemoglobin A1c Calcium Phosphorus Magnesium Total Bilirubin AST ALT Alkaline Phosphatase Troponin I < 0.0120 Total Protein Albumin Globulin Albumin/Globulin Ratio Triglycerides Cholesterol LDL Cholesterol Direct HDL Cholesterol TSH 3rd Generation Urine Color Urine Clarity Urine pH Ur Specific [place] Urine Protein Urine Glucose (UA) Urine Ketones Urine Blood Urine Nitrate Urine Bilirubin Urine Urobilinogen Ur Leukocyte Esterase Urine WBC (Auto) Urine RBC (Auto) Ur Squamous Epith Cells Urine Bacteria Urine HCG, Qual Urine Opiates Screen Urine Methadone Screen Ur Barbiturates Screen Ur Phencyclidine Scrn Ur Amphetamines Screen U Benzodiazepines Scrn U Oth Cocaine Metabols U Cannabinoids Screen Assessment & Plan - Assessment and Plan (Free Text) Plan: Patient is a 28 female with a past medical history significant for DM presenting with complaints of dizziness s/p syncopal episode. -MRI brain -Check orthostatics -Carotid US -Hydration <Juliette Martinez - Last Filed: 11/06/18 14:36> Meds - Medications Medications: Current Medications Acetaminophen (Tylenol 325mg Tab) 650 mg PO Q6 PRN PRN Reason: Headache Last Admin: 11/06/18 09:02 Dose: 650 mg Enoxaparin Sodium (Lovenox) 40 mg SC DAILY [facility] Last Admin: 11/06/18 09:05 Dose: 40 mg Dextrose/Sodium Chloride (Dextrose 5%/0.9% Ns 1000 Ml) 1,000 mls @ 100 mls/hr IV .Q10H [facility] Last Admin: 11/06/18 09:05 Dose: 100 mls/hr Meclizine HCl (Antivert) 12.5 mg PO Q8 PRN PRN Reason: Dizziness Last Admin: 11/05/18 21:49 Dose: 12.5 mg Results - Vital Signs Recent Vital Signs: Last Vital Signs Temp 98.2 F 11/06/18 07:00 Pulse 60 11/06/18 07:07 Resp 20 11/06/18 07:00 BP 118/75 11/06/18 07:00 Pulse Ox 99 11/06/18 08:00 - Labs Result Diagrams: 11/06/18 09:16 11/06/18 09:16 Labs: Laboratory Results - last 24 hr 11/06/18 11/06/18 09:16 09:16 WBC 6.7 RBC 4.16 Hgb 11.9 Hct 34.9 MCV 83.9 MCH 28.5 MCHC 34.0 RDW 13.2 Plt Count 206 MPV 11.3 Neut % (Auto) 59.0 Lymph % (Auto) 33.1 Larue % (Auto) 4.1 Eos % (Auto) 3.5 Baso % (Auto) 0.3 Neut # (Auto) 4.0 Lymph # (Auto) 2.2 Larue # (Auto) 0.3 Eos # (Auto) 0.2 Baso # (Auto) 0.0 Sodium 136 Potassium 3.6 Chloride 108 H Carbon Dioxide 23 Anion Gap 9 L BUN 7 Creatinine 0.5 L Est GFR ( Amer) > 60 Est GFR (Non-Af Amer) > 60 Random Glucose 113 H Calcium 8.5 L Total Bilirubin 0.5 AST 15 ALT 20 Alkaline Phosphatase 51 Total Protein 5.8 L Albumin 3.3 L Globulin 2.5 Albumin/Globulin Ratio 1.3 Assessment & Plan - Assessment and Plan (Free Text) Plan: I examined the patient with the resident and independently and agree with the assessment and plan. Dr. Martinez Neurology
--- NOTE | 2018-11-05 01:16 | HP ---
CHIEF COMPLAINT: Status post syncopal episode on Wednesday followed by dizziness. HISTORY OF PRESENT ILLNESS: Ms. Nieves is a 28-year-old female with no significant past medical history, has been in her usual state of health until Wednesday when she was doing her dishes, she suddenly felt dizzy and fell to the ground without any warning. She was on the floor when she woke up. After that episode of fall, she started feeling dizziness and had multiple episodes of vomiting each time she ate and has not been able to eat well, has been feeling dizzy since then also, but started having left occipital headache which has been there since Wednesday but yesterday her headache and dizziness were so worse that she could not take the pain anymore and she has been in bed almost of the time for the past 4 days. She feels like her room was spinning around. Whenever she was trying to get up from bed to stand up, she felt very dizzy; even when she was lying down in bed, if she started looking up, she felt very dizzy but when she was looking down, she did not have any dizziness. She denied any nausea or vomiting at the present time. Denied any chest pain. Denied any shortness of breath. Denied any abdominal symptoms. Denied any urinary symptoms. She denies being getting . She has been on control pills. She is having 3 children who are 3, 6 and 8 year old. PAST MEDICAL HISTORY: Denies any past medical history. PAST SURGICAL HISTORY: Denies any past surgical history other than 2 C sections. FAMILY HISTORY: Diabetes in mother, uncles and grandparents. PERSONAL HISTORY: She is , having 3 children, unemployed. SOCIAL HISTORY: Denies smoking, alcohol or drug abuse. ALLERGIES: NO KNOWN DRUG ALLERGIES. MEDICATIONS: Her home medications include control pills, albuterol as needed, prednisone 40 mg daily, naproxen 500 mg p.o. twice daily, Robaxin 500 mg p.o. three times a day. REVIEW OF SYSTEMS: As described in history of present illness. All other systems reviewed and were found to be negative. PHYSICAL EXAMINATION: GENERAL: Young obese female, lying in bed, in no acute distress. VITAL SIGNS: Blood pressure 115/66, pulse 84, respiration 20, temperature 98.4 degrees Fahrenheit, O2 sat 95% on 2 liters nasal cannula. HEENT: Pupils are equal and reacting to light and accommodation. Extraocular muscles intact. No icterus. No pallor. No oral thrush. No pharyngeal congestion. NECK: Supple. No JVD. LUNGS: Bilateral vesicular breath sounds. No wheezing. No rhonchi. CVS: S, S1 present, regular. ABDOMEN: Soft, nontender. Bowel sounds present. No guarding. No rigidity. No rebound or tenderness noted. MATERIAL DISTRIBUTOR: Alert, awake, and oriented x3. No focal deficits noted. EXTREMITIES: No edema. Palpable peripheral pulses. LABORATORY DATA: Labs done from ED, WBC 9.8, hemoglobin 13.2, hematocrit 40, platelet 244. Sodium 137, potassium 3.7, chloride 105, bicarb 23, BUN 12, creatinine 0.5, glucose 155, calcium 9.7, total bilirubin 0.4, AST 20, ALT 17 and alkaline phosphatase 66, total protein 7, albumin 4.3. Urine specific gravity 1.019, pH 5, 1+ blood otherwise negative. Urine drug screen negative. Cervical spine CT is negative. Head CT is negative. Maxillofacial CT is negative. Chest x-ray, no active pulmonary disease. Carotid Doppler is negative for any stenosis. EKG shows sinus bradycardia at 57 beats per minute, T inversion in 3 with poor R wave progression. Echocardiogram done, results pending. ASSESSMENT AND PLAN: Young, obese female with no significant past medical history other than on control pills, admitted for sudden onset of syncopal episode which happened on Wednesday followed by persistent dizziness and 2 days of persistent vomiting with left occipital headache and persistent vertigo. In the emergency department, the patient had all the routine tests done which were all negative. test was negative and patient is being admitted for further evaluation. 1. Status post syncopal episode, questionable etiology, rule out secondary to vasovagal versus cardiac causes, rule out other neurologic causes. 2. Occipital headache with persistent vertigo, rule out any neurologic causes. 3. Possible benign positional vertigo from viral etiology. PLAN: Patient is being admitted to Telemetry. All the workups so far are negative. Patient is slightly orthostatic. We will give general hydration. We will do CT angiogram, discussed with Cardiology and Neurology. We will monitor patient closely. We will give DVT and GI prophylaxis. We will add further recommendation as her clinical course progresses. Marilee Cason MD [facility] # [phone]
[2018-11-05 01:36] VITALS: RESP 20
[2018-11-05] MEDS: Dextrose 5%/0.9% NS 1,000 ML IV SCH ×3 (04:30→23:01)
[2018-11-05 07:27] LABS: BASO % 0.3 % (0.0-2.0); EOS # 0.2 K/uL (0.0-0.7); HEMOGLOBIN 11.5 g/dL (11.0-16.0); LYMPH # 2.5 K/uL (1.0-4.3); LYMPH % 34.6 % (20.0-40.0); MEAN CELL VOLUME 84.1 fL (81.0-99.0); MEAN CORPUSCULAR HEMOGLOBIN 28.8 pg (27.0-31.0); MEAN CORPUSCULAR HGB CONC 34.2 g/dL (33.0-37.0); MONO # 0.5 K/uL (0.0-0.8); MONO % 6.4 % (0.0-10.0); NEUT % 55.7 % (50.0-75.0); RBC 4.01 Mil/uL (3.80-5.20); RED CELL DISTRIBUTION WIDTH 13.3 % (11.5-14.5); WHITE BLOOD COUNT 7.1 K/uL (4.8-10.8)
[2018-11-05 08:48] LABS: ALB/GLOB RATIO 1.3 (1.0-2.1); ALBUMIN 3.2 g/dL (3.5-5.0); ALT/SGPT 17 U/L (9-52); AST/SGOT 15 U/L (14-36); BLOOD UREA NITROGEN 6 mg/dL (7-17); CALCIUM 8.6 mg/dl (8.6-10.4); GFR NON-AFRICAN AMERICAN > 60
--- NOTE | 2018-11-05 11:02 | CP.PCM.PN ---
Subjective - Date & Time of Evaluation Date of Evaluation: 11/05/18 Time of Evaluation: 11:02 - Subjective Subjective: Progress note dictated #[id number] Objective - Vital Signs/Intake and Output Vital Signs (last 24 hours): Temp Pulse Resp BP Pulse Ox 98.1 F 74 20 106/70 99 11/05/18 07:52 11/05/18 08:38 11/05/18 07:52 11/05/18 07:52 11/05/18 07:56 - Medications Medications: Current Medications Acetaminophen (Tylenol 325mg Tab) 650 mg PO Q6 PRN PRN Reason: Headache Enoxaparin Sodium (Lovenox) 40 mg SC DAILY [facility] Last Admin: 11/04/18 09:13 Dose: 40 mg Dextrose/Sodium Chloride (Dextrose 5%/0.9% Ns 1000 Ml) 1,000 mls @ 100 mls/hr IV .Q10H [facility] Last Admin: 11/05/18 04:30 Dose: Not Given Influenza Virus Vaccine (Flucelvax Quad 0539-6683 Syr) 60 mcg IM .ONCE ONE Stop: 11/05/18 12:01 Meclizine HCl (Antivert) 12.5 mg PO Q8 PRN PRN Reason: Dizziness - Labs Labs: 11/05/18 07:11 11/05/18 07:11
--- NOTE | 2018-11-05 11:26 | MRI ---
Date of service: 11/05/2018 PROCEDURE: MRI BRAIN WITHOUT CONTRAST HISTORY: r/o brain lesion COMPARISON: None available. TECHNIQUE: Multiplanar, multisequence MR images of the brain were obtained without intravenous contrast enhancement. FINDINGS: HEMORRHAGE: None DWI: No evidence of an acute or early subacute infarction. BRAIN PARENCHYMA: No mass effect or edema. No atrophy or chronic microvascular ischemic changes. VENTRICLES: Unremarkable. No hydrocephalus. CRANIUM: Unremarkable. ORBITS: Grossly unremarkable. PARANASAL SINUSES/MASTOIDS: Clear VASCULAR SYSTEM: Skull base flow voids intact. OTHER FINDINGS: None. IMPRESSION: Unremarkable non contrast enhanced MRI of the brain.
[2018-11-05] MEDS: Enoxaparin 40 mg Syringe SC SCH (11:37)
--- NOTE | 2018-11-05 11:38 | CP.PCM.PN ---
<Jessica Macias - Last Filed: 11/05/18 12:15> Subjective - Date & Time of Evaluation Date of Evaluation: 11/05/18 Time of Evaluation: 11:37 - Subjective Subjective: Neuro Follow-Up Note: Mrs. Nieves was evaluated this morning at bedside after MRI. She is still c/o dizziness intermittently. She admits that prior to episodes of dizziness she experiences a left sided headache and ringing in the left ear. She describes the dizziness as the room spinning. Last episode of near-syncope was last night; TRAVEL PTA called on the pt. At this time, she denies h/a, visual changes, chest pain, sob, cough, n/v/d. Objective - Vital Signs/Intake and Output Vital Signs (last 24 hours): Temp Pulse Resp BP Pulse Ox 98.1 F 74 20 106/70 99 11/05/18 07:52 11/05/18 08:38 11/05/18 07:52 11/05/18 07:52 11/05/18 07:56 - Medications Medications: Current Medications Acetaminophen (Tylenol 325mg Tab) 650 mg PO Q6 PRN PRN Reason: Headache Enoxaparin Sodium (Lovenox) 40 mg SC DAILY [facility] Last Admin: 11/04/18 09:13 Dose: 40 mg Dextrose/Sodium Chloride (Dextrose 5%/0.9% Ns 1000 Ml) 1,000 mls @ 100 mls/hr IV .Q10H [facility] Last Admin: 11/05/18 04:30 Dose: Not Given Influenza Virus Vaccine (Flucelvax Quad [id number] Syr) 60 mcg IM .ONCE ONE Stop: 11/05/18 12:01 Meclizine HCl (Antivert) 12.5 mg PO Q8 PRN PRN Reason: Dizziness - Labs Labs: 11/05/18 07:11 11/05/18 07:11 - Constitutional Appears: Well, Non-toxic, No Acute Distress - Head Exam Head Exam: ATRAUMATIC, NORMAL INSPECTION, NORMOCEPHALIC - Eye Exam Eye Exam: EOMI, Nystagmus Pupil Exam: PERRL - ENT Exam ENT Exam: Mucous Membranes Moist - Neck Exam Neck Exam: Full ROM, Normal Inspection - Respiratory Exam Respiratory Exam: NORMAL BREATHING PATTERN - Cardiovascular Exam Cardiovascular Exam: REGULAR RHYTHM - Back Exam Back Exam: Full ROM, NORMAL INSPECTION - Neurological Exam Neurological Exam: Alert, Awake, CN II-XII Intact, Oriented x3, Reflexes Normal Neuro motor strength exam: Left Upper Extremity: 5, Right Upper Extremity: 5, L eft Lower Extremity: 5, Right Lower Extremity: 5 Additional comments: Speech clear, fluid Follows commands +nystagmus noted b/l Equal strength b/l Unable to tolerate [id number] test (experiences dizziness during exam) Fine motor intact; sensation intact b/l - Psychiatric Exam Psychiatric exam: Normal Affect, Normal Mood - Skin Skin Exam: Dry, Normal Color, Warm Assessment and Plan (1) Syncope Assessment & Plan: Imaging reviewed: -MRI Brain (11/05/18): Unremarkable non contrast enhanced MRI of the brain. -CT Chest (11/04/18): unremarkable for PE (on preliminary report) -CT Maxillofacial (11/03/18): Unremarkable non contrast enhanced CT of the maxillofacial bones -CT C-Spine (11/03/18): Unremarkable CT of the cervical spine. -CT Head (11/03/18): No intracranial hemorrhage or mass effect. Please note the same-day CT maxillofacial study. -Carotid U/S: normal b/l Mrs. Nieves is a 28 y/o F who is admitted for dizziness and syncopal episode with head trauma. Likely syncope 2/2 vertigo as her symptoms were resolved with Meclizine. She has had recurrent near syncope during admission, last episode was last night. -ECHO completed; results pending--will f/u with results. -Start Meclizine 12.5 mg PO Q8 hours prn dizziness--continue this upon discharge as well. -Fall precautions -Cardiology on board -Consider EEG at outpatient if it cannot be done while in hospital. -Follow up with neurology as outpatient within 1 month in the office. -Discussed plan with primary, Dr. Cason. -Notify neuro of acute changes in pt condition. Case discussed with Dr. Martinez Status: Acute <Juliette Martinez - Last Filed: 11/06/18 14:35> Objective - Vital Signs/Intake and Output Vital Signs (last 24 hours): Temp Pulse Resp BP Pulse Ox 98.2 F 60 20 118/75 99 11/06/18 07:00 11/06/18 07:07 11/06/18 07:00 11/06/18 07:00 11/06/18 08:00 Intake and Output: 11/06/18 11/06/18 06:59 18:59 Intake Total 1640 Balance 1640 - Medications Medications: Current Medications Acetaminophen (Tylenol 325mg Tab) 650 mg PO Q6 PRN PRN Reason: Headache Last Admin: 11/06/18 09:02 Dose: 650 mg Enoxaparin Sodium (Lovenox) 40 mg SC DAILY [facility] Last Admin: 11/06/18 09:05 Dose: 40 mg Dextrose/Sodium Chloride (Dextrose 5%/0.9% Ns 1000 Ml) 1,000 mls @ 100 mls/hr IV .Q10H [facility] Last Admin: 11/06/18 09:05 Dose: 100 mls/hr Meclizine HCl (Antivert) 12.5 mg PO Q8 PRN PRN Reason: Dizziness Last Admin: 11/05/18 21:49 Dose: 12.5 mg - Labs Labs: 11/06/18 09:16 11/06/18 09:16 Assessment and Plan - Assessment and Plan (Free Text) Assessment: I agree with the assessment and plan. Thank you Dr. Martinez
[2018-11-05] MEDS ORDERED: Influenza Vaccine 60 MCG/0.5 ML SYR (3 yr & up) IM ONE (12:00)
[2018-11-05] MEDS ORDERED: Influenza Vaccine 60 mcg/0.5 mL SYR (4YR UP) IM ONE (12:00)
--- NOTE | 2018-11-05 12:45 | CT ---
Date of service: 11/04/2018 CTA chest PE protocol Indication: r/o dvt Technique: Contiguous axial images were obtained through the chest with intravenous contrast enhancement. Sagittal and coronal reconstructions were generated and reviewed. This CT exam was performed using 1 or more of the following dose reduction techniques: Automated exposure control, adjustment of the MAA and/or kV according to patient size, and/or use of iterative reconstruction technique. IV contrast: 100 mL Visipaque 320 IV Radiation dose (DLP): 579.89 MGy-cm. Comparison: Chest x-ray performed 11/03/18 Findings: Visualized portions of the inferior thyroid gland appear unremarkable. The mediastinal and hilar vascular structures appear within normal limits. The heart appears within normal limits of size. No large central or segmental pulmonary embolus evident. No focal consolidation. No pleural effusion. No pneumothorax. No suspicious pulmonary nodules measuring greater than 5 mm. Limited visualized portions of the upper abdomen appear grossly unremarkable. No acute osseous abnormality is detected. Impression: No large central or segmental pulmonary embolus identified. Preliminary impression was provided by [facility].
--- NOTE | 2018-11-05 14:55 | CP.PCM.PN ---
Subjective - Date & Time of Evaluation Date of Evaluation: 11/05/18 Time of Evaluation: 11:00 - Subjective Subjective: Seen and examined No chest pain or dyspnea Still has intermittent dizziness and headache Objective - Vital Signs/Intake and Output Vital Signs (last 24 hours): Temp Pulse Resp BP Pulse Ox 98.1 F 73 20 106/70 99 11/05/18 07:52 11/05/18 14:20 11/05/18 07:52 11/05/18 07:52 11/05/18 07:56 Intake and Output: 11/05/18 11/05/18 06:59 18:59 Intake Total 950 Balance 950 - Medications Medications: Current Medications Acetaminophen (Tylenol 325mg Tab) 650 mg PO Q6 PRN PRN Reason: Headache Last Admin: 11/05/18 11:37 Dose: 650 mg Enoxaparin Sodium (Lovenox) 40 mg SC DAILY [facility] Last Admin: 11/05/18 11:37 Dose: 40 mg Dextrose/Sodium Chloride (Dextrose 5%/0.9% Ns 1000 Ml) 1,000 mls @ 100 mls/hr IV .Q10H [facility] Last Admin: 11/05/18 04:30 Dose: Not Given Meclizine HCl (Antivert) 12.5 mg PO Q8 PRN PRN Reason: Dizziness - Labs Labs: 11/05/18 07:11 11/05/18 07:11 - Constitutional Appears: Well, No Acute Distress - Eye Exam Eye Exam: EOMI Pupil Exam: PERRL - Respiratory Exam Respiratory Exam: Clear to Ausculation Bilateral - Cardiovascular Exam Cardiovascular Exam: REGULAR RHYTHM, +S1, +S2. absent: JVD, Murmur - GI/Abdominal Exam GI & Abdominal Exam: Soft. absent: Tenderness - Extremities Exam Extremities Exam: absent: Pedal Edema - Neurological Exam Neurological Exam: CN II-XII Intact, Oriented x3 - Psychiatric Exam Psychiatric exam: Normal Affect, Normal Mood Assessment and Plan (1) Syncope Assessment & Plan: Possible vasovagal etiology, although orthostatics are negative Persistent dizziness and headache, MRI negative Follow up CT chest Preserved LV systolic function on echo, as per my preliminary review If CT chest is negative, will be stable from cardiology perspective Status: Acute
--- NOTE | 2018-11-05 15:26 | CARD ---
APPROVED REPORT Date of service: 11/04/2018 EXAM: Two-dimensional and M-mode echocardiogram with Doppler and color Doppler. Other Information Quality : GoodRhythm : INDICATION Syncope 2D DIMENSIONS IVSd0.7 (0.7-1.1cm)LVDd4.9 (3.9-5.9cm) PWd0.7 (0.7-1.1cm)LA Xlxmis31 (18-58mL) LVDs3.3 (2.5-4.0cm)FS (%) 32.9 % LVEF (%)61.2 (>50%)LVEF (Fernández's)67.04 % M-Mode DIMENSIONS Left Atrium (MM)3.52 (2.5-4.0cm)IVSd0.93 (0.7-1.1cm) Aortic Root2.43 (2.2-3.7cm)LVDd4.42 (4.0-5.6cm) Aortic Cusp Exc.1.85 (1.5-2.0cm)PWd1.01 (0.7-1.1cm) FS (%) 24 %LVDs3.37 (2.0-3.8cm) LVEF (%)60 (>50%) Mitral Valve MV E Keobulgf767.0cm/sMV A Wcejregl75.7cm/sE/A ratio1.4 TDI Lateral E' Peak V19.40cm/sMedial E' Peak V12.35cm/sE/Lateral E'5.3 E/Medial E'8.3 Tricuspid Valve TR Peak Tivbujju225tz/sTR Peak Gr.19gjJuGLKL60ufZx LEFT VENTRICLE The left ventricle is normal size. There is normal left ventricular wall thickness. The left ventricular function is normal. The left ventricular ejection fraction is within the normal range. No regional wall motion abnormalities noted. The left ventricular diastolic function is normal. No left ventricle thrombus noted on this study. There is no ventricular septal defect visualized. There is no left ventricular aneurysm. There is no mass noted in the left ventricle. RIGHT VENTRICLE The right ventricle is normal size. There is normal right ventricular wall thickness. The right ventricular systolic function is normal. ATRIA The left atrium size is normal. The right atrium size is normal. The interatrial septum is intact with no evidence for an atrial septal defect. AORTIC VALVE The aortic valve is normal in structure and function. No aortic regurgitation is present. There is no aortic valvular stenosis. There is no aortic valvular vegetation. MITRAL VALVE The mitral valve is normal in structure and function. There is no evidence of mitral valve prolapse. There is no mitral valve stenosis. There is no mitral valve regurgitation noted. TRICUSPID VALVE The tricuspid valve is normal in structure and function. There is mild tricuspid regurgitation. Right ventricular systolic pressure is estimated at less than 30 mmHg. There is no tricuspid valve prolapse or vegetation. There is no tricuspid valve stenosis. PULMONIC VALVE The pulmonary valve is normal in structure and function. There is no pulmonic valvular regurgitation. There is no pulmonic valvular stenosis. GREAT VESSELS The aortic root is normal in size. The ascending aorta is normal in size. The pulmonary artery is normal. The IVC is normal in size and collapses >50% with inspiration. PERICARDIAL EFFUSION The pericardium appears normal. There is no pleural effusion. <Conclusion> The left ventricular function is normal. The left ventricular ejection fraction is within the normal range. No regional wall motion abnormalities noted.
--- NOTE | 2018-11-06 00:59 | PN ---
DATE: 11/05/2018 SUBJECTIVE: The patient was seen and examined at bedside. Events from last night noted. The patient felt dizzy associated with left occipital pain. The patient described her episode as a screen that was in front of her eyes, was not able to open her eyes. When she tried to open, it was hurting and seeing flashes. HOSPICE HOME HEALTH AIDE was called. The patient claims that she was aware of the situation, but she was not able to open her eyes. She was communicating with nurses and the HOSPICE HOME HEALTH AIDE team. This morning, the patient is feeling better. Less dizziness. Denies any other new complaints. PHYSICAL EXAMINATION GENERAL: Young female, lying in bed, in no acute distress. VITAL SIGNS: Blood pressure 117/72, pulse 65, respirations 20, temperature 97.8 degrees Fahrenheit, O2 sat 100% on room air. HEENT: Pupils are equal, round and reacting to light and accommodation. Extraocular muscles intact. No icterus. No pallor. No oral thrush. No pharyngeal congestion. NECK: Supple. No JVD. LUNGS: Bilateral vesicular breath sounds. No wheezing. No rhonchi. CARDIOVASCULAR SYSTEM: S1 and S2 present, regular. ABDOMEN: Soft and nontender. Bowel sounds are present. No guarding. No rigidity. No rebound tenderness noted. CENTRAL NERVOUS SYSTEM: Alert, awake, oriented x3. No focal deficits noted. EXTREMITIES: No edema. Palpable peripheral pulses. MEDICATIONS: Include Tylenol 650 mg p.o. every 6 hours p.r.n., IV fluids D5 normal saline 100 mL an hour, Lovenox 40 mg subcu daily and meclizine 12.5 mg p.o. every 8 hours p.r.n. LABORATORY DATA: Labs from this morning: WBC 7.1, hemoglobin 11.5, hematocrit 33.7, platelets 177. Sodium 136, potassium 3.7, chloride 107, bicarbonate 23, BUN 6, creatinine 0.5, glucose 96, calcium 8.6. LFTs within normal limits. UA negative. Lipid profile within normal limits. TSH normal. MRI negative. Carotid Duplex results pending. Chest CT negative for PE. Echo shows left ventricular function normal, ejection fraction within normal range. No regional wall motion abnormalities detected. ASSESSMENT AND PLAN: Young female with no significant past medical history, admitted for syncope followed by dizziness and left occipital headache with persistent symptoms, status post another episode of vertigo last night, status post HOSPICE HOME HEALTH AIDE. Her symptoms improved with meclizine. We will continue with meclizine as needed. Continue with intravenous fluids. Follow up with Cardiology and Neurology. If cleared, we will plan discharging the patient home in a.m. Marilee Cason MD
[2018-11-06 01:32] VITALS: O2SAT 99
[2018-11-06] MEDS: Dextrose 5%/0.9% NS 1,000 ML IV SCH (09:05)
[2018-11-06] MEDS: Enoxaparin 40 mg Syringe SC SCH (09:05)
[2018-11-06 09:24] LABS: BASO % 0.3 % (0.0-2.0); EOS # 0.2 K/uL (0.0-0.7); EOS % 3.5 % (0.0-4.0); HEMOGLOBIN 11.9 g/dL (11.0-16.0); LYMPH # 2.2 K/uL (1.0-4.3); LYMPH % 33.1 % (20.0-40.0); MEAN CELL VOLUME 83.9 fL (81.0-99.0); MEAN CORPUSCULAR HEMOGLOBIN 28.5 pg (27.0-31.0); MEAN PLATELET VOLUME 11.3 fL (7.2-11.7); MONO # 0.3 K/uL (0.0-0.8); MONO % 4.1 % (0.0-10.0); RBC 4.16 Mil/uL (3.80-5.20); RED CELL DISTRIBUTION WIDTH 13.2 % (11.5-14.5); WHITE BLOOD COUNT 6.7 K/uL (4.8-10.8)
[2018-11-06 09:44] LABS: ALB/GLOB RATIO 1.3 (1.0-2.1); ALBUMIN 3.3 g/dL (3.5-5.0); ALT/SGPT 20 U/L (9-52); AST/SGOT 15 U/L (14-36); BLOOD UREA NITROGEN 7 mg/dL (7-17); CALCIUM 8.5 mg/dl (8.6-10.4); GFR NON-AFRICAN AMERICAN > 60
--- NOTE | 2018-11-06 11:41 | CP.PCM.PN ---
Subjective - Date & Time of Evaluation Date of Evaluation: 11/06/18 Time of Evaluation: 11:41 - Subjective Subjective: Discharge summary dictated #[id number] Objective - Vital Signs/Intake and Output Vital Signs (last 24 hours): Temp Pulse Resp BP Pulse Ox 98.2 F 60 20 118/75 99 11/06/18 07:00 11/06/18 07:07 11/06/18 07:00 11/06/18 07:00 11/06/18 08:00 Intake and Output: 11/06/18 11/06/18 06:59 18:59 Intake Total 1640 Balance 1640 - Medications Medications: Current Medications Acetaminophen (Tylenol 325mg Tab) 650 mg PO Q6 PRN PRN Reason: Headache Last Admin: 11/06/18 09:02 Dose: 650 mg Enoxaparin Sodium (Lovenox) 40 mg SC DAILY [facility] Last Admin: 11/06/18 09:05 Dose: 40 mg Dextrose/Sodium Chloride (Dextrose 5%/0.9% Ns 1000 Ml) 1,000 mls @ 100 mls/hr IV .Q10H [facility] Last Admin: 11/06/18 09:05 Dose: 100 mls/hr Meclizine HCl (Antivert) 12.5 mg PO Q8 PRN PRN Reason: Dizziness Last Admin: 11/05/18 21:49 Dose: 12.5 mg - Labs Labs: 11/06/18 09:16 11/06/18 09:16
--- NOTE | 2018-11-06 13:05 | CARD ---
APPROVED REPORT Date of service: 11/03/2018 EKG Measurement Heart [id number] 130P9 [id number] <Conclusion> Sinus bradycardia with sinus arrhythmia Otherwise normal ECG
[2018-11-06 15:51] VITALS: PULSE 86
[2018-11-06 16:09] VITALS: BP 118/74; TEMP 98.3
--- NOTE | 2018-11-07 05:46 | DS ---
DISCHARGE DIAGNOSES: Status post syncope, dizziness, headache, possible benign positional vertigo. HISTORY OF PRESENT ILLNESS: Ms. Nieves is a 28-year-old female with no significant past medical history, admitted to the hospital with complaint of syncopal episode on Wednesday prior to the admission; since then, has been having left parietal headache associated with dizziness, progressively getting worse. She was complaining of dizziness as room spinning around and gets worse when trying to get up from bed or standing up. In the ED after the treatment, the patient was persistently dizzy and the patient was admitted for further management. Today, the patient is feeling much better, denies any dizziness, but complaining of headache in the parietal region. Denies any other nausea, vomiting, abdominal pain, diarrhea or constipation. Denies any urinary complaints. Denies any leg pains or leg cramps. Denies any other neurologic symptoms. All other symptoms reviewed and were found to be negative. PHYSICAL EXAMINATION: GENERAL: A young female, lying in bed, in no acute distress. VITAL SIGNS: Blood pressure 118/74, pulse 65, respirations 20, temperature 98.3 degrees Fahrenheit, and O2 sats 99% on room air. HEENT: Pupils are equal, round and reacting to light and accommodation. Extraocular muscles intact. No icterus. No pallor. No oral thrush. No pharyngeal congestion. NECK: Supple. No JVD. No thyromegaly. CHEST: Moving equally bilateral lung respiration. LUNGS: Clear to auscultation. Bilateral vesicular breath sounds. No wheezing. No rhonchi. CVS: S1 and S2 present, regular. ABDOMEN: Soft and nontender. Bowel sounds present. No guarding, no rigidity, no rebound tenderness noted. MIXER MACHINE FEEDER: Alert, awake and oriented x3. No focal deficits noted. EXTREMITIES: No edema. Palpable peripheral pulses. LABORATORY DATA: Labs from this morning: WBC 6.7, hemoglobin 11.9, hematocrit 34.9, and platelets 206. Sodium 136, potassium 3.6, chloride 108, bicarb 23, BUN 7, creatinine 0.5, glucose 113, hemoglobin A1c 5.6, calcium 8.5, LFTs within normal limits. Cardiac enzymes x3 negative. Lipid profile within normal limits. Triglycerides 138, cholesterol 129, LDL 78, HDL 44, TSH is 4.33. UA negative. Beta hCG negative. Cervical spine CT negative. Head CT negative. Maxillofacial CT is negative. Chest x-ray negative. EKG consistent with normal sinus rhythm without any acute ST-T changes. Carotid Doppler negative. Lower extremity venous duplex scan negative for DVT. CT chest for PE negative. MRI of the brain negative. HOSPITAL COURSE: The patient was admitted to the hospital for syncope, dizziness. The patient had all the workup done, ruled out for any ACS, ruled out for PE. The patient was evaluated by Cardiology and Urology. The patient had an episode of INSULATION INSTALLER. The patient was aware of all the surroundings and complained of sudden blackout in front of her eyes, was not able to see anything in front of her eyes. When she tried to open, her eyes were hurting with some flashing light, all these symptoms lasted for few minutes. During the INSULATION INSTALLER, the patient was communicating with the INSULATION INSTALLER team, but she was not able to open her eyes. Her symptoms progressively improved with meclizine and all the workup is negative. All the consultants cleared the patient for dizzy. I advised the patient to follow up with Neurology for further care, maybe if symptoms persistent, can do EEG as an outpatient as per Neurology. The patient is anxious to be discharged and is willing to follow up with PMD as outpatient. CONDITION UPON DISCHARGE: The patient is alert, awake, oriented x3 and hemodynamically stable at the time of discharge. DISCHARGE INSTRUCTIONS: Follow up with PMD. Follow up with Neurology. DISCHARGE MEDICATIONS: Meclizine 12.5 mg p.o. every 8 hours p.r.n., Tylenol 650 mg p.o. every 6 hours p.r.n. I advised the patient to return to the ED if any persistent or worsening symptoms. DISCHARGE DIET: Heart-healthy diet. ACTIVITY: As tolerated. Marilee Cason MD
--- NOTE | 2018-11-07 13:34 | VASCLAB ---
Date of service: 11/04/2018 PROCEDURE: Lower Extremity Venous Duplex Exam. HISTORY: r/o dvt PRIORS: None. TECHNIQUE: Bilateral common femoral, femoral, popliteal and posterior tibial, peroneal and great saphenous veins were evaluated. Flow was assessed with color Doppler, compressibility, assessment of phasic flow and augmentation response. Report prepared by Charbel King, BS, RVT FINDINGS: RIGHT: 1. Common Femoral Vein: 1.1. Compressibility - Fully compressible: Thrombus - None : Flow - Phasic: Augmentation -Normal: Reflux - None. 2. Femoral Vein: 2.1. Compressibility - Fully compressible: Thrombus - None : Flow - Phasic: Augmentation -Normal: Reflux - None. 3. Popliteal Vein: 3.1. Compressibility - Fully compressible: Thrombus - None : Flow - Phasic: Augmentation -Normal: Reflux - None. 4. Posterior Tibial Vein: 4.1. Compressibility - Fully compressible: Thrombus - None: Flow - Phasic: Augmentation -Normal: Reflux - None. 5. Peroneal Vein: 5.1. Compressibility - Fully compressible: Thrombus - None: Flow - Phasic: Augmentation -Normal: Reflux - None. 6. Great Saphenous Vein: 6.1. Compressibility - Fully compressible: Thrombus - None: Flow - Phasic: Augmentation - Normal: Reflux - None. LEFT: 1. Common Femoral Vein: 1.1. Compressibility - Fully compressible: Thrombus - None: Flow - Phasic: Augmentation -Normal: Reflux - None. 2. Femoral Vein: 2.1. Compressibility - Fully compressible: Thrombus - None: Flow - Phasic: Augmentation -Normal: Reflux - None. 3. Popliteal Vein: 3.1. Compressibility - Fully compressible: Thrombus - None : Flow - Phasic: Augmentation -Normal: Reflux - None. 4. Posterior Tibial Vein: 4.1. Compressibility - Fully compressible: Thrombus - None: Flow - Phasic: Augmentation -Normal: Reflux - None. 5. Peroneal Vein: 5.1. Compressibility - Fully compressible: Thrombus - None: Flow - Phasic: Augmentation -Normal: Reflux - None. 6. Great Saphenous Vein: 6.1. Compressibility - Fully compressible: Thrombus - None: Flow - Phasic: Augmentation - Normal: Reflux - None. OTHER FINDINGS: Right: None significant. Left: None significant. IMPRESSION: Right: No evidence of deep or superficial vein thrombosis of the right lower extremity. Normal valve function noted of the right side. Left: No evidence of deep or superficial vein thrombosis of the left lower extremity. Normal valve function noted of the left side.
--- NOTE | 2018-11-07 14:10 | CARD ---
APPROVED REPORT Date of service: 11/04/2018 EKG Measurement Heart [id number] [id number] <Conclusion> Sinus bradycardia with sinus arrhythmia Cannot rule out Anterior infarct, age undetermined Abnormal ECG
== END 2018-11-06 19:30 | disposition home or self-care (01) | DRG 111 ==
LOC: C.ER 15:14 → C.6T 20:17 → OBSVTOIN 11-05 12:46
PROVIDERS: ADMIT Internal Medicine; ATTEND Internal Medicine
DX: H81.12 Benign paroxysmal vertigo, left ear (principal); R55 Syncope and collapse; S09.90XA Unspecified injury of head, initial encounter; E11.9 Type 2 diabetes mellitus without complications; E66.9 Obesity, unspecified; H93.12 Tinnitus, left ear; J45.909 Unspecified asthma, uncomplicated; W18.30XA Fall on same level, unspecified, initial encounter; Y92.000 Kitchen of unspecified non-institutional (private) residence as the place of occurrence of the external cause; Z83.3 Family history of diabetes mellitus; Z98.891 History of uterine scar from previous surgery

== ENCOUNTER 2018-11-10 10:34 | Emergency (ER) | payer MEDICAID ==
[2018-11-10 10:37] VITALS: BMI 33.6
[2018-11-10 10:43] VITALS: BP 116/77; PULSE 98; RESP 18; TEMP 97.8; O2SAT 100
--- NOTE | 2018-11-10 11:04 | C.PDOC ---
History Of Present Illness 28 y/o female presents to the ED complaining of a headache for the last week s/p fall. Patient was recently evaluated for similar complaint and admitted for syncope/vertigo, and had negative cardiac work-up. She returns today with pain to the left parietal region. States pain is the same region as previous headache after fall. Of note, patient already had negative MRI and CT scan during prolonged hospitalization. No new injuries or other complaints. No slurred speech, visual changes, extremity weakness, or other neurological deficit. Time Seen by Provider: 11/10/18 10:49 Chief Complaint (Nursing): Headache History Per: Patient History/Exam Limitations: no limitations Onset/Duration Of Symptoms: Days Current Symptoms Are (Timing): Still Present Past Medical History Reviewed: Historical Data, Nursing Documentation, Vital Signs Vital Signs: Last Vital Signs Temp 97.8 F 11/10/18 10:37 Pulse 98 H 11/10/18 10:37 Resp 18 11/10/18 10:37 BP 116/77 11/10/18 10:37 Pulse Ox 100 11/10/18 10:37 - Medical History PMH: Asthma, Migraine Surgical History: - [facility] Procedures LOW CERVICAL (02/04/15) Family History: States: Unknown Family Hx - Social History Hx Tobacco Use: No Hx Alcohol Use: No Hx Substance Use: No - Immunization History Hx Tetanus Toxoid Vaccination: No Hx Influenza Vaccination: No Hx Pneumococcal Vaccination: No Review Of Systems Except As Marked, All Systems Reviewed And Found Negative. Constitutional: Negative for: Fever Eyes: Negative for: Pain, Vision Change ENT: Negative for: Nose Congestion, Throat Pain Cardiovascular: Negative for: Chest Pain, Palpitations Respiratory: Negative for: Shortness of Breath Gastrointestinal: Negative for: Nausea, Vomiting Musculoskeletal: Negative for: Neck Pain Neurological: Positive for: Headache. Negative for: Weakness, Numbness, Dizziness Physical Exam - Physical Exam Appears: Well, Non-toxic, No Acute Distress Skin: Warm, Dry Head: Normacephalic, Tenderness (Point tenderness to the left parietal region), Swelling (minimal, over left parietal region) Eye(s): bilateral: Normal Inspection (no nystagmus), PERRL, EOMI Nose: Normal Oral Mucosa: Moist Neck: Normal ROM, Supple, Other (No meningeal signs) Chest: Symmetrical Cardiovascular: Rhythm Regular, No Murmur Respiratory: Normal Breath Sounds, No Accessory Muscle Use, Other (No respiratory distress) Extremity: Bilateral: Atraumatic, Normal Color And Temperature, Normal ROM Pulses: Left Radial: Normal, Right Radial: Normal Neurological/Psych: Oriented x3, Normal Speech, Normal Cranial Nerves (2-12 intact), Normal Motor, Normal Sensation, Other (No focal deficits) Gait: Steady ED Course And Treatment O2 Sat by Pulse Oximetry: 100 (RA) Pulse Ox Interpretation: Normal Medical Decision Making Medical Decision Making: Records reviewed: Patient recently admitted from 11/03-11/06, had negative MRI and cardiac work-up. Negative CT Head. Patient was discharged home on meclizine and instructed to take tylenol prn for headache. Impression: Headache x 1 week Plan: * 975 mg PO Tylenol advise outp tfu. neg mri ct. neuro intact. mild ttp. suspect post concussiive. Disposition - Disposition Referrals: Juliette Martinez MD [Staff Provider] - Disposition: HOME/ ROUTINE Disposition Time: 11:00 Condition: STABLE Additional Instructions: return to er with worsening symptoms or concerns. Instructions: Concussion in Adults, Headache, Adult (DC) Forms: [employer] ([employer]) - Clinical Impression Clinical Impression: Headache - Scribe Statement The provider has reviewed the documentation as recorded by the Bridgett Barragan Provider Attestation: All medical record entries made by the Brandieibe were at my direction and personally dictated by me. I have reviewed the chart and agree that the record accurately reflects my personal performance of the history, physical exam, medical decision making, and the department course for this patient. I have also personally directed, reviewed, and agree with the discharge instructions and disposition.
--- NOTE | 2018-11-10 11:12 | C.PDOC ---
Time Seen by Provider: 11/10/18 10:49 Chief Complaint (Nursing): Headache Past Medical History Vital Signs: Last Vital Signs Temp 97.8 F 11/10/18 10:37 Pulse 98 H 11/10/18 10:37 Resp 18 11/10/18 10:37 BP 116/77 11/10/18 10:37 Pulse Ox 100 11/10/18 10:37 - Medical History PMH: Asthma, Migraine Surgical History: - [facility] Procedures LOW CERVICAL (02/04/15) Family History: States: Unknown Family Hx - Social History Hx Tobacco Use: No Hx Alcohol Use: No Hx Substance Use: No - Immunization History Hx Tetanus Toxoid Vaccination: No Hx Influenza Vaccination: No Hx Pneumococcal Vaccination: No ED Course And Treatment O2 Sat by Pulse Oximetry: 100 Disposition - Disposition Referrals: Juliette Martinez MD [Staff Provider] - Disposition: HOME/ ROUTINE Disposition Time: 11:02 Condition: STABLE Additional Instructions: return to er with worsening symptoms or concerns. Instructions: Headache, Adult (DC), Concussion in Adults - Clinical Impression Clinical Impression: Headache
== END 2018-11-10 11:31 | disposition home or self-care (01) ==
LOC: C.ER 10:34
DX: R51 Headache (principal)